=== PATIENT | female | born 1960 | race Caucasian/White ===

== ENCOUNTER 2018-07-14 08:49 | Emergency (ER) | payer BC ==
[2018-07-14 09:30] VITALS: BP 130/82
--- NOTE | 2018-07-14 10:21 | UC ---
Throat Pain/Nasal Myles HPI - HPI Summary HPI Summary: Patient presents to urgent care reporting 6 days of progressive sinus pressure, ear fullness, nasal congestion, postnasal drip, and sore throat. Patient states she had fevers but has been taking mxhm-axx-aatyxev medication. Patient states her symptoms don't seem to getting any better. Patient denies any myalgias. Patient with cough that is not responding to [id number] cough suppressants and keeping her up at night. Patient states she hasn't slept in several days related to the cough. Patient states her bedroom is not humidified. No wheezing or shortness of breath. No chest pain. Patient has multiple sick contacts with similar. Patient to get the flu vaccine this year. Patient's medications reviewed this visit. - History of Current Complaint Chief Complaint: UCRespiratory Stated Complaint: EYE/EAR CONCERNS, COUGH Time Seen by Provider: 07/14/18 10:02 Hx Obtained From: Patient Onset/Duration: Gradual Onset Severity: Mild Pain Intensity: 2 Pain Scale Used: 0-10 Numeric Cough: Nonproductive Associated Signs & Symptoms: Positive: Sinus Discomfort, Nasal Discharge. Negative: Fever - Allergies/Home Medications Allergies/Adverse Reactions: Allergies Allergy/AdvReac Type Severity Reaction Status Date / Time metoprolol [From Toprol XL] Allergy Hives Verified 07/14/18 09:24 Home Medications: Home Medications Cetirizine* [ZyrTEC 10 MG TAB*] 10 mg PO DAILY 07/14/18 [History Confirmed 07/14] Diphenhydra/Phenyleph/Acetamin [Delsym Cough + Cold Night 12.5-5-325 mg/10Ml] 1 dose PO ONCE PRN 07/14/18 [History Confirmed 07/14/18] Hydrochlorothiazide TAB* [Hydrodiuril TAB*] 12.5 mg PO DAILY 07/14/18 [History Confirmed 07/14/18] amLODIPine/Benazepril 05/03(NF [Lotrel 05/03(NF)] 1 cap PO DAILY 07/14/18 [ History Confirmed 07/14/18] PMH/Surg Hx/FS Hx/Imm Hx Previously Healthy: Yes - Surgical History Surgical History: Yes Surgery Procedure, Year, and Place: bunionectomy - Family History Known Family History: Positive: Non-Contributory - Social History Occupation: Retired Lives: With Family Alcohol Use: Occasionally Substance Use Type: None Smoking Status (MU): Heavy Every Day Tobacco Smoker Type: Cigarettes Amount Used/How Often: 1/2 PPD Review of Systems All Other Systems Reviewed And Are Negative: Yes Constitutional: Positive: Fatigue Eyes: Positive: Negative ENT: Positive: Nasal Discharge, Sinus Congestion, Sinus Pain/Tenderness Respiratory: Positive: Cough Physical Exam - Summary Physical Exam Summary: Vital Signs Reviewed: Yes A+Ox3, coarse cough Eyes: Conjunctiva Clear, LANNY. EOM intact and full ENT: Hearing grossly normal slight fluid left ear no fluid right ear turbinates inflammed and boggy + PND. mmoist, uvula midline, no exudate, no erythema Neck: Positive: Supple Respiratory: Positive:coarse cough, scattered wheeze, decreased right base no accessory muscle use Cardiovascular: RRR nl s1, s2 no m/r CBT <2 sec abd soft + BS nt/nd no guarding, no distension Musculoskeletal Exam: DENG x 4 without difficulty Strength Intact, ROM Intact Neurological: Positive: Alert, + sensation throughout Psychological: Positive: Normal Response To Family Skin: Positive: no rash, no ecchymosis Triage Information Reviewed: Yes Vital Signs: Initial Vital Signs Temp 98.8 F 07/14/18 09:26 Pulse 87 07/14/18 09:26 Resp 18 07/14/18 09:26 BP 130/82 07/14/18 09:26 Pulse Ox 99 07/14/18 09:26 Throat Pain/Nasal Course/Dx - Course Course Of Treatment: Patient presents to urgent care with congestion, cough, sinus pressure x 6 days. Pt also with ear pain. Pt states cough preventing sleep - little improvement with OTC cough medication. Pt with persistent cough , diffuse wheeze, inflammed turbinates. Will Rx abx, prednisone (pt has taken previous), Robitussin with codeine. hydration. humifidify air. return precaution. secretion precaution. pt in agreement with plan - Differential Dx/Diagnosis Provider Diagnosis: Rhinosinusitis, Acute bronchitis Discharge - Sign-Out/Discharge Documenting (check all that apply): Patient Departure All imaging exams completed and their final reports reviewed: No Studies - Discharge Plan Condition: Stable Disposition: HOME Prescriptions: Amoxicillin PO (*) [Amoxicillin 500 MG CAP*] 500 mg PO Q12H #20 cap Fluticasone NASAL SPRAY 50MCG* [Flonase NASAL SPRAY 50MCG*] 2 spray BOTH NARES DAILY #1 btl guaiFENesin/CODIEN 100MG-10MG* [Robitussin AC 100Mg-10Mg*] 10 ml PO TID #100 ml MDD 30 predniSONE TAB* [Deltasone TAB*] 50 mg PO DAILY #5 tab Patient Education Materials: Rhinosinusitis (ED) Referrals: Domonique Torres MD [Primary Care Provider] - Additional Instructions: - Stay well hydrated. Drink plenty of non-alcoholic, non-caffinated beverages. - Alternate ibuprofen (Advil, Motrin) 600mg and Tylenol every 3 hours for pain or fever. Take with food. Do NOT take for more than 4-5 days. - These infections are spread by secretions - do NOT share eating or drinking utensils - clean items you share with other people such as cell phones, computer mouse, TV remote, computer tablets,etc. Once you have been antibiotics for 2 days, change your toothbrush and your pillowcase. - get plenty of restful sleep - humidify the air in the room where you sleep - boil water, run a hot steam shower, vaporizer, cups of water by heat register - okay to take over the counter decongestant and cough medication. you have been given a prescription for robitussin with codeine. Do NOT drive,operate machinery or drink alcohol while taking codeine - this is a narcotic, may cause constipation - use nasal spray as prescribed - take antibiotics as prescribed until gone - contact your doctor or return with questions or concerns - Billing Disposition and Condition Condition: STABLE Disposition: Home
== END 2018-07-14 10:42 | disposition home or self-care (01) ==
LOC: UCCORT 08:49
DX: J32.9 Chronic sinusitis, unspecified (principal); J20.9 Acute bronchitis, unspecified; Z88.8 Allergy status to other drugs, medicaments and biological substances; F17.210 Nicotine dependence, cigarettes, uncomplicated
CPT/HCPCS: 99202; G0463